=== PATIENT | male | born 1995 | race Caucasian/White ===

== ENCOUNTER 2024-09-13 19:13 | Emergency (ER) | payer OTHER | END 2024-09-13 21:00 | disposition home or self-care (01) | LOC: CSHERS 19:13 | DX: R07.9 Chest pain, unspecified (principal); F07.9 Unspecified personality and behavioral disorder due to known physiological condition | CPT/HCPCS: 93005; 93010 ==

== ENCOUNTER 2024-11-07 19:41 | Emergency (ER) | payer OTHER ==
[2024-11-07] MEDS ORDERED: Ibuprofen 800 MG TAB ONE (20:08)
== END 2024-11-07 23:18 | disposition home or self-care (01) ==
LOC: CSHERS 19:41
DX: S80.01XA Contusion of right knee, initial encounter (principal); F84.0 Autistic disorder; W22.8XXA Striking against or struck by other objects, initial encounter
CPT/HCPCS: 99283